=== PATIENT | female | born 1945 ===

== ENCOUNTER → 2017-02-12 | Outpatient (REF) ==
[2017-02-12 12:24] LABS: CALCIUM 9.5 mg/dL (8.4-10.2); CREATININE, serum 0.7 mg/dL (0.52-1.25); POTASSIUM 4.6 mmol/L (3.4-5.0)
== END ==
LOC: ZCOL.LAB 11:40
PROVIDERS: Nurse Practitioner Family
DX: Z01.89 Encounter for other specified special examinations (principal)